=== PATIENT | male | born 1940 | race Caucasian/White ===

== ENCOUNTER 2019-09-04 11:00 | Outpatient (RCR) | payer MEDICARE ==
[~2019-09-04] VITALS: Ht 170.2 cm; Wt 86.8 kg
[2019-09-04] MEDS ORDERED: AMLO5TAB9 PO (11:51)
[2019-09-04] MEDS ORDERED: HYDR-3924 PO (11:51)
[2019-09-04] MEDS ORDERED: GLIP10TA13 PO (11:51)
== END 2019-09-04 15:36 | disposition home or self-care (01) ==
LOC: PREOP 11:00
PROVIDERS: ATTEND Specialist
DX: Z01.818 Encounter for other preprocedural examination (principal); Z11.59 Encounter for screening for other viral diseases
CPT/HCPCS: 87635

== ENCOUNTER 2019-09-07 08:59 | Day surgery (SDC) | payer MEDICARE ==
[~2019-09-07] VITALS: Ht 170.2 cm; Wt 86.8 kg
[~2019-09-07 08:59] MED LIST: AMLO5TAB9 PO; GLIP10TA13 PO; HYDR-3924 PO
--- OUTSIDE RECORDS SUMMARY | 2019-09-07 09:24 | XMS REPORT | Continuity of Care Document ---
Author Organization Unknown Address Unknown Phone Unavailable Allergies Active Description Code Type Severity Reaction Onset Reported/Identified Relationship to Patient Clinical Status Yes hydrocodone [id number] Drug Aller gy Unknown Vomiting 09/04/2019 Yes No Known Drug Allergies [id number] Drug Allergy Unknown N/A 09/04/2019 Medications There is no data. Problems There is no data. Procedures There is no data. Results Test Result Range Coronavirus SARS-CoV-2 SO 2018 - 0 12:50 Coronavirus Ab [Units/volume] in Serum Negative Negative Encounters ACCT No. Visit Date/Time Discharge Status Pt. Type Provider Facility Loc./Unit Complaint [id number] 09/04/2019 11:00:00 020 15:36:00 DIS Outpatient RC BAUTISTA MD [facility] PREOP CATARACT LEFT EYE [id number] 09/07/2019 11:30:00 P EN [facility]read[facility]
[2019-09-07] MEDS ORDERED: TIMOLOL MALEATE 0.5% 5 ML (TIMOPTIC) BTL OU PRN (09:45)
[2019-09-07] MEDS ORDERED: POVIDONE (BETADINE) OPHTH SOLN 5% 30 ML OP ONE (09:45)
[2019-09-07] MEDS ORDERED: MOXIFLOXACIN OPHTH SOLN 5 MG/ML 0.3 ML SYRINGE OP ONE (09:45)
[2019-09-07] MEDS ORDERED: LIDOCAINE PF 1% 2 ML VIAL IR PRN (09:45)
[2019-09-07] MEDS: TETRACAINE 0.5% OPHTH SOLN 4 ML BTL (SINGLE DOSE ONLY) OU PRN ×4 (09:48→10:13)
[2019-09-07] MEDS: PHENYLEPHRINE 10% OPHTH (NEO-SYN) 5 ML BTL OU SCH ×3 (10:01→10:13)
[2019-09-07] MEDS: CYCLOPENTOLATE 1% (CYCLOGYL) 2 ML DROPS OP SCH ×3 (10:01→10:13)
[2019-09-07] MEDS ORDERED: MIDAZOLAM 2 MG/2 ML (VERSED) VIAL ONE (10:10)
[2019-09-07] MEDS ORDERED: hydrALAZINE (APESOLINE) 20 MG/ML VIAL ONE (10:42)
[2019-09-07] MEDS ORDERED: LABETALOL HCL 20 MG/4 ML VIAL ONE (10:42)
--- NOTE | 2019-09-07 10:59 | Ophthalmology Operative Report ---
Cataract removal/placement IOL PREOPERATIVE DIAGNOSIS: Cataract Left Eye POSTOPERATIVE DIAGNOSIS: Cataract Left Eye PROCEDURE: Cataract removal and placement of posterior chamber implant, left eye SURGEON: Aureliano Bautista ANESTHESIA: Topical with sedation COMPLICATIONS: None ESTIMATED BLOOD LOSS: Minimal DESCRIPTION OF PROCEDURE: After proper informed consent was obtained, the patient, a 78 male, was taken to the Operating Room and the left eye was anesthetized with tetracaine. The left eye was then prepped and draped in the usual manner. A wire lid speculum was placed. A paracentesis was made at the left hand position. Preservative free lidocaine was injected into the anterior chamber followed by viscoelastic. A clear corneal incision was made in the temporal position. A capsulorrhexis was preformed and the central nuclear and cortical material were removed. The posterior capsule was polished and an Bernardino 18.0 AU00T0 was placed into the capsular bag. The residual viscoelastic was aspirated and balanced saline solution was injected into the anterior chamber. Moxifloxacin was injected into the anterior chamber. The wound was checked and found to be water tight. The patient tolerated the procedure well without complications. AURELIANO BAUTISTA MD September 07, 2019 10:59
--- NOTE | 2019-09-07 10:59 | Ophthalmologist Pre-Op Note ---
Pre-Operative Progress Note H&P Reviewed The H&P was reviewed, patient examined and no changes noted. Date H&P Reviewed: September 07, 2019 Time H&P Reviewed: 10:22 Pre-Op Dx Cataract, Left Eye RC BAUTISTA MD September 07, 2019 10:59
[2019-09-07] MEDS ORDERED: acetaZOLAMIDE ER 500 MG CAP (DIAMOX SEQUELS) PO ONE (11:00)
[2019-09-07 11:20] VITALS: BP 182/70
--- NOTE | 2019-09-07 12:44 | Anesthesia-General Post-Op ---
MAC Patient Condition Mental Status/LOC: Same as Preop Cardiovascular: Satisfactory Nausea/Vomiting: Absent Respiratory: Satisfactory Pain: Controlled Complications: Absent Post Op Complications Complications None Follow Up Care/Instructions Patient Instructions None needed. Anesthesiology Discharge Order Discharge Order Patient is doing well, no complaints, stable vital signs, no apparent adverse anesthesia problems. No complications reported per nursing. GILBERTO MCKEON CRNA September 07, 2019 12:44
== END 2019-09-07 11:20 | disposition home or self-care (01) ==
LOC: SDC 08:59
PROVIDERS: ATTEND Specialist
DX: E11.36 Type 2 diabetes mellitus with diabetic cataract (principal); H25.12 Age-related nuclear cataract, left eye; I10 Essential (primary) hypertension; Z85.828 Personal history of other malignant neoplasm of skin; Z88.6 Allergy status to analgesic agent; Z79.84 Long term (current) use of oral hypoglycemic drugs; Z79.899 Other long term (current) drug therapy
CPT/HCPCS: 82962

== ENCOUNTER 2020-02-20 05:40 | Outpatient (RCR) | payer MEDICARE ==
[~2020-02-20] VITALS: Ht 170.2 cm; Wt 86.8 kg
[~2020-02-20 05:40] MED LIST changes: +AMLO-250 PO; -AMLO5TAB9 PO
--- NOTE | 2020-02-21 09:04 | NUR ---
Notified patient of positive COVID test.
== END 2020-02-20 08:58 | disposition home or self-care (01) ==
LOC: PREOP 05:40
PROVIDERS: ATTEND Specialist
DX: Z01.812 Encounter for preprocedural laboratory examination (principal); U07.1 COVID-19
CPT/HCPCS: 87635

== ENCOUNTER 2020-03-12 05:51 | Outpatient (RCR) | payer MEDICARE ==
[~2020-03-12] VITALS: Ht 170 cm; Wt 82.7 kg
[~2020-03-12 05:51] MED LIST changes: +ASCO-262 PO; +OMEP20TA33 PO
== END 2020-03-12 10:10 | disposition home or self-care (01) ==
LOC: PREOP 05:51
PROVIDERS: ATTEND Specialist
DX: Z01.812 Encounter for preprocedural laboratory examination (principal); H25.9 Unspecified age-related cataract; Z20.828 Contact with and (suspected) exposure to other viral communicable diseases
CPT/HCPCS: 87635

== ENCOUNTER 2020-03-14 07:06 | Day surgery (SDC) | payer MEDICARE ==
[~2020-03-14] VITALS: Ht 170 cm; Wt 82.7 kg
[2020-03-14 07:45] VITALS: BP 188/83
[2020-03-14] MEDS ORDERED: MOXIFLOXACIN OPHTH SOLN 5 MG/ML 0.3 ML SYRINGE OP ONE (07:45)
[2020-03-14] MEDS ORDERED: LIDOCAINE PF 1% 2 ML VIAL IR PRN (07:45)
[2020-03-14] MEDS ORDERED: TIMOLOL MALEATE 0.5% 5 ML (TIMOPTIC) BTL OU PRN (07:45)
[2020-03-14] MEDS ORDERED: POVIDONE (BETADINE) OPHTH SOLN 5% 30 ML OP ONE (07:45)
[2020-03-14] MEDS ORDERED: hydrALAZINE (APESOLINE) 20 MG/ML VIAL ONE (08:03)
[2020-03-14] MEDS: TETRACAINE 0.5% OPHTH SOLN 4 ML BTL (SINGLE DOSE ONLY) OU PRN ×4 (08:25→08:42)
[2020-03-14] MEDS: TROPICAMIDE 1% OPH SOLN (MYDRIACYL) 15 ML BTL OP SCH ×3 (08:31→08:41)
[2020-03-14] MEDS: PHENYLEPHRINE 10% OPHTH (NEO-SYN) 5 ML BTL OU SCH ×3 (08:31→08:42)
[2020-03-14] MEDS ORDERED: MIDAZOLAM 2 MG/2 ML (VERSED) VIAL ONE (09:00)
--- NOTE | 2020-03-14 09:11 | Ophthalmologist Pre-Op Note ---
Pre-Operative Progress Note H&P Reviewed The H&P was reviewed, patient examined and no changes noted. Date H&P Reviewed: Mar 14, 2020 Time H&P Reviewed: 09:11 Pre-Op Dx Cataract, Right Eye RC BAUTISTA MD Mar 14, 2020 09:11
--- NOTE | 2020-03-14 10:05 | Ophthalmology Operative Report ---
Cataract removal/placement IOL PREOPERATIVE DIAGNOSIS: Cataract Right Eye POSTOPERATIVE DIAGNOSIS: Cataract Right Eye PROCEDURE: Cataract removal and placement of posterior chamber implant, right eye SURGEON: Aureliano Bautista ANESTHESIA: Topical with sedation COMPLICATIONS: None ESTIMATED BLOOD LOSS: Minimal DESCRIPTION OF PROCEDURE: After proper informed consent was obtained, the patient, a 79 male, was taken to the Operating Room and the right eye was anesthetized with tetracaine. The right eye was then prepped and draped in the usual manner. A wire lid speculum was placed. A paracentesis was made at the left hand position. Preservative free lidocaine was injected into the anterior chamber followed by viscoelastic. A clear corneal incision was made in the temporal position. A capsulorrhexis was preformed and the central nuclear and cortical material were removed. The posterior capsule was polished and Bernardino 18.5 AU00T0 IOL was placed into the capsular bag. The residual viscoelastic was aspirated and balanced saline solution was injected into the anterior chamber. Moxifloxacin was injected into the anterior chamber. The wound was checked and found to be water tight. The patient tolerated the procedure well without complications. AURELIANO BAUTISTA MD Mar 14, 2020 10:05
[2020-03-14 10:14] VITALS: BP 213/90
--- NOTE | 2020-03-14 11:05 | Anesthesia-General Post-Op ---
MAC Patient Condition Mental Status/LOC: Same as Preop Cardiovascular: Satisfactory Nausea/Vomiting: Absent Respiratory: Satisfactory Pain: Controlled Complications: Absent Post Op Complications Complications None Follow Up Care/Instructions Patient Instructions None needed. Anesthesiology Discharge Order Discharge Order Patient is doing well, no complaints, stable vital signs, no apparent adverse anesthesia problems. No complications reported per nursing. GILBERTO MCKEON CRNA Mar 14, 2020 11:05
[2020-03-14] MEDS ORDERED: acetaZOLAMIDE ER 500 MG CAP (DIAMOX SEQUELS) PO ONE (11:30)
== END 2020-03-14 10:15 | disposition home or self-care (01) ==
LOC: SDC 07:06
PROVIDERS: ATTEND Specialist
DX: H25.11 Age-related nuclear cataract, right eye (principal); I10 Essential (primary) hypertension; K21.9 Gastro-esophageal reflux disease without esophagitis; E11.36 Type 2 diabetes mellitus with diabetic cataract; Z79.899 Other long term (current) drug therapy; Z88.5 Allergy status to narcotic agent
CPT/HCPCS: 66984; 82962; V2632

== ENCOUNTER 2020-03-17 05:48 | Outpatient (RCR) | payer MEDICARE ==
[~2020-03-17] VITALS: Ht 170 cm; Wt 82.7 kg
== END 2020-06-15 | disposition home or self-care (01) ==
LOC: PREOP 05:48
PROVIDERS: ATTEND Specialist
DX: Z01.818 Encounter for other preprocedural examination (principal)

== ENCOUNTER 2020-03-21 07:44 | Day surgery (SDC) | payer MEDICARE ==
[~2020-03-21] VITALS: Ht 172 cm; Wt 82.7 kg
[2020-03-21] MEDS ORDERED: TETRACAINE 0.5% OPHTH SOLN 4 ML BTL (SINGLE DOSE ONLY) OU PRN (07:45)
[2020-03-21] MEDS ORDERED: PHENYLEPHRINE 10% OPHTH (NEO-SYN) 5 ML BTL OU PRN (07:45)
[2020-03-21] MEDS ORDERED: TROPICAMIDE 1% OPH SOLN (MYDRIACYL) 15 ML BTL OU PRN (07:45)
--- NOTE | 2020-03-21 07:50 | Ophthalmologist Pre-Op Note ---
Pre-Operative Progress Note H&P Reviewed The H&P was reviewed, patient examined and no changes noted. Date H&P Reviewed: Mar 21, 2020 Time H&P Reviewed: 07:50 Pre-Op Dx Secondary Cataract, Right Eye RC BAUTISTA MD Mar 21, 2020 07:50
--- NOTE | 2020-03-21 09:09 | Ophthalmology Operative Report ---
YAG Capsulotomy PREOPERATIVE DIAGNOSIS: Secondary Cataract Left Eye POSTOPERATIVE DIAGNOSIS: Secondary Cataract Left Eye PROCEDURE: YAG Capsulotomy, left eye SURGEON: Aureliano Bautista ANESTHESIA: Topical anesthesia COMPLICATIONS: None ESTIMATED BLOOD LOSS: Minimal DESCRIPTION OF PROCEDURE: After proper informed consent was obtained, the patient's, a 79 male left eye received one drop of Tropicamide and one drop of Tetracaine. The patient was then placed at the YAG laser and using a power of [3.2] millijoules and [ 14] bursts were used to fashion a central capsulotomy. The patient tolerated the procedure well without complications. AURELIANO BAUTISTA MD Mar 21, 2020 09:09
== END 2020-03-21 08:50 | disposition home or self-care (01) ==
LOC: SDC 07:44
PROVIDERS: ATTEND Specialist
DX: H26.492 Other secondary cataract, left eye (principal); Z88.5 Allergy status to narcotic agent; Z83.3 Family history of diabetes mellitus